=== PATIENT | male | born 1965 | race Hispanic/Latino ===

== ENCOUNTER 2022-08-08 18:19 | Emergency (ER) | payer SELFPAY ==
[2022-08-08] MEDS ORDERED: methylPREDNISolone Sod Succ 40 MG VIAL ONE (19:48)
[2022-08-08] MEDS ORDERED: Lidocaine 1% (PF) 30 ML VIAL ONE (19:50)
[2022-08-08] MEDS ORDERED: Naproxen 500 MG TAB ONE (20:08)
== END 2022-08-08 20:15 | disposition home or self-care (01) ==
LOC: NAV ERS 18:19
DX: M75.31 Calcific tendinitis of right shoulder (principal)
CPT/HCPCS: 96372; J2001; J2920

== ENCOUNTER 2023-11-01 10:10 | Emergency (ER) | payer BC, SELFPAY ==
[2023-11-01] MEDS ORDERED: Ibuprofen 800 MG TAB ONE (10:37)
== END 2023-11-01 11:25 | disposition home or self-care (01) ==
LOC: NAV ERS 10:10
DX: B34.9 Viral infection, unspecified (principal); Z20.822 Contact with and (suspected) exposure to COVID-19
CPT/HCPCS: 87635; 87804; 99283